=== PATIENT | female | born 1995 | race Caucasian/White ===

== ENCOUNTER 2021-03-12 17:35 | Emergency (ER) | payer OTHER ==
[~2021-03-12] VITALS: Ht 152.4 cm; Wt 111.1 kg
[2021-03-12] MEDS ORDERED: SYNTHROID200 MCG (17:58)
[2021-03-12] MEDS ORDERED: ZITHROMAX200 MG PO (21:09)
== END 2021-03-12 21:14 | disposition home or self-care (01) ==
LOC: ER 17:35
DX: O26.892 Other specified pregnancy related conditions, second trimester (principal); B96.0 Mycoplasma pneumoniae [M. pneumoniae] as the cause of diseases classified elsewhere; R05 Cough; J06.9 Acute upper respiratory infection, unspecified; Z3A.17 17 weeks gestation of pregnancy

== ENCOUNTER 2021-03-20 11:06 | Outpatient (CLI) | payer OTHER ==
[~2021-03-20 11:06] MED LIST: SYNTHROID200 MCG; ZITHROMAX200 MG PO
== END 2021-03-20 12:30 | disposition home or self-care (01) ==
LOC: PRENATAL 11:06
PROVIDERS: ATTEND Obstetrics & Gynecology Maternal & Fetal Medicine
DX: O35.0XX1 Maternal care for (suspected) central nervous system malformation in fetus, fetus 1 (principal); O35.3XX1 Maternal care for (suspected) damage to fetus from viral disease in mother, fetus 1; O98.512 Other viral diseases complicating pregnancy, second trimester; O28.1 Abnormal biochemical finding on antenatal screening of mother; O99.891 Other specified diseases and conditions complicating pregnancy; Z36.89 Encounter for other specified antenatal screening; Z3A.18 18 weeks gestation of pregnancy